=== PATIENT | female | born 1950 | race American Indian/Alaskan Native ===

== ENCOUNTER 2020-04-30 09:00 | Outpatient (CLI) | payer MEDICARE, OTHER ==
[2020-04-29 13:49] VITALS: BP 190/108
[2020-05-03] MEDS ORDERED: HYDROmorphone 1 MG/1 ML INJ IV PRN ×2 (07:24)
[2020-05-03] MEDS ORDERED: ONDANSETRON 4 MG/2 ML INJ IV PRN (07:24)
[2020-05-03] MEDS ORDERED: LACTATED RINGERS 1,000 ML IV SCH (07:30)
[2020-05-03] MEDS ORDERED: GLYCOPYRROLATE 0.4 MG/2 ML INJ ONE (07:33)
[2020-05-03] MEDS ORDERED: PHENYLEPHRINE/NS 1,000 MCG/10 ML SYRINGE (OR USE) IV ONE (07:33)
[2020-05-03] MEDS ORDERED: ONDANSETRON 4 MG/2 ML INJ ONE (07:33)
[2020-05-03] MEDS ORDERED: dexAMETHasone 20 MG/5 ML VIAL ONE (07:33)
[2020-05-03] MEDS ORDERED: LIDOCAINE MPF (2%) 20 MG/1 ML VIAL 5 ML ONE (07:33)
[2020-05-03] MEDS ORDERED: fentaNYL 100 MCG/2 ML INJ ONE (07:33)
[2020-05-03] MEDS ORDERED: propofoL 200 MG/20 ML VIAL IV ONE (07:34)
[2020-05-03] MEDS ORDERED: SUCCINYLCHOLINE CHLORIDE 200 MG/10 ML INJ MDV ONE (07:36)
== END 2020-04-30 10:00 | disposition home or self-care (01) ==
LOC: LAB 09:00 → EDSTATUS 05-03 08:00
PROVIDERS: ATTEND Urology
DX: U07.1 COVID-19 (principal)
CPT/HCPCS: J0330; J1100; J2370; J2405; J2704; J3010; U0003

== ENCOUNTER 2020-05-24 09:17 | Day surgery (SDC) | payer MEDICARE, OTHER ==
[~2020-05-24 09:17] MED LIST: GLYCOPYRROLATE 0.4 MG/2 ML INJ ONE; LIDOCAINE MPF (2%) 20 MG/1 ML VIAL 5 ML ONE; ONDANSETRON 4 MG/2 ML INJ ONE; PHENYLEPHRINE/NS 1,000 MCG/10 ML SYRINGE (OR USE) IV ONE; SUCCINYLCHOLINE CHLORIDE 200 MG/10 ML INJ MDV ONE; dexAMETHasone 20 MG/5 ML VIAL ONE; fentaNYL 100 MCG/2 ML INJ ONE; propofoL 200 MG/20 ML VIAL IV ONE
--- NOTE | 2020-05-24 09:19 | Anesthesia Consultation ---
Anesthesia Consult and Med Hx Date of service: 05/24/20 - Airway Anesthetic Teeth Evaluation: Good ROM Head & Neck: Adequate Mental/Hyoid Distance: Adequate Mallampati Class: Class II Intubation Access Assessment: Probably Good - Pulmonary Exam CTA: Yes - Cardiac Exam Cardiac Exam: RRR - Pre-Operative Health Status ASA Pre-Surgery Classification: ASA2 Proposed Anesthetic Plan: General - Pulmonary Hx Smoking: No Hx Respiratory Symptoms: No Hx Sleep Apnea: No ([facility]OLINA PRE SCREEN LOW RISK) - Cardiovascular System Hx Hypertension: Yes (took nifedipine this morning) Hx Heart Attack/AMI: No - Central Nervous System CVA: No Hx Back Pain: Yes - Gastrointestinal Hx Gastroesophageal Reflux Disease: Yes - Endocrine Hx Renal Disease: No Hx Liver Disease: No Hx Insulin Dependent Diabetes: Yes Hx Thyroid Disease: No - Other Systems Hx Obesity: No - Additional Comments Anesthesia Medical History Comments: No hx anesthetic complications. Found to be COVID+ last month on preop screening test, asymptomatic. Neg rapid COVID test 05/21/20 on chart. Last dose ASA 6 days ago.
[2020-05-24] MEDS ORDERED: fentaNYL 100 MCG/2 ML INJ IV PRN (09:20)
[2020-05-24] MEDS ORDERED: ONDANSETRON 4 MG/2 ML INJ IV PRN (09:20)
[2020-05-24] MEDS ORDERED: HYDROcodone/ACETAMINOPHEN 5-325 MG TAB PO PRN (09:20)
--- NOTE | 2020-05-24 09:20 | Anesthesia Day of Surgery ---
Anesthesia Day of Surgery - Day of Surgery Patient Examined: Yes Patient H&P Reviewed: Yes Patient is NPO: Yes
[2020-05-24] MEDS ORDERED: BACTERIOSTATIC SODIUM CHLORIDE 0.9% 30 ML VIAL INFILTRATI ONE (09:26)
[2020-05-24] MEDS ORDERED: LACTATED RINGERS 1,000 ML IV SCH (09:30)
[2020-05-24] MEDS ORDERED: MIDAZOLAM 2 MG/2 ML INJ IV NR (10:00)
[2020-05-24] MEDS ORDERED: METOPROLOL SUCCINATE XL 100 MG TAB PO SCH (10:07)
[2020-05-24] MEDS ORDERED: ceFAZolin/Water 2 GM/20 ML 2 GM/20 ML SYRINGE IV ONE (10:48)
[2020-05-24] MEDS ORDERED: GLYCOPYRROLATE 0.4 MG/2 ML INJ ONE (10:56)
[2020-05-24] MEDS ORDERED: fentaNYL 100 MCG/2 ML INJ ONE (10:56)
[2020-05-24] MEDS ORDERED: LIDOCAINE MPF (2%) 20 MG/1 ML VIAL 5 ML ONE (10:56)
[2020-05-24] MEDS ORDERED: PHENYLEPHRINE/NS 1,000 MCG/10 ML SYRINGE (OR USE) IV ONE (10:56)
[2020-05-24] MEDS ORDERED: dexAMETHasone 20 MG/5 ML VIAL ONE (10:56)
[2020-05-24] MEDS ORDERED: ONDANSETRON 4 MG/2 ML INJ ONE (10:56)
[2020-05-24] MEDS ORDERED: propofoL 200 MG/20 ML VIAL IV ONE (10:57)
[2020-05-24] MEDS ORDERED: ceFAZolin/Water 2 GM/20 ML 2 GM/20 ML SYRINGE IV NR (11:30)
--- NOTE | 2020-05-24 11:38 | Post Operative Note ---
Date of procedure: 05/24/20 Pre-op diagnosis: hematuria Post-op diagnosis: same Findings: see report Procedure: cysto rpgs bx Anesthesia: GETA Surgeon: TAN ALVARENGA Estimated blood loss: minimal Pathology: list (bladder) Specimen disposition: to lab Condition: stable Disposition: PACU
--- NOTE | 2020-05-24 11:39 | Discharge Summary ---
Short Stay Discharge Plan Activity: other (no straining ) Weight Bearing Status: Full Weight Bearing Diet: low fat, low cholesterol, low salt Special Instructions: other (inc fluids ) Additional Instructions: DO NOT TAKE BYSTOLIC AT HOME TODAY. MEDICATION GIVEN IN PREOP. Follow up with: ARTUR RODRIGUEZ DO [Primary Care Provider] - 7 Days TAN ALVARENGA MD [Staff Physician] - 3 Days
--- NOTE | 2020-05-24 12:33 | Fluoroscopy Report ---
FLUOROSCOPY RETROGRADE UROGRAPHY HISTORY: FINDINGS: Fluoroscopy was provided by radiology during retrograde urography by the urologist. There i s normal filling of both renal collecting systems. No filling defect or abnormal dilatation is identi fied. IMPRESSION: Unremarkable bilateral retrograde pyelograms Fluoroscopy time: 53 seconds Fluoroscopic images: 6 Signer Name: James Rivas Jr, MD Signed: 05/24/2020 12:29 PM Workstation Name: [id number]
--- NOTE | 2020-05-24 13:50 | Post Anesthesia Evaluation ---
- Post Anesthesia Evaluation Patient Participated: Yes Airway Patent: Yes Stable Respiratory Function: Yes Nausea/Vomiting: No Temp > 96.8F: Yes Pain Manageable: Yes Adequeate Hydration: Yes Anesthesia Complications: No
--- NOTE | 2020-05-24 14:22 | Operative Report ---
PREOPERATIVE DIAGNOSIS: Thickened anterior wall hematuria. POSTOPERATIVE DIAGNOSES: Thickened anterior wall hematuria. PROCEDURE: Cystoscopy, retrograde, bladder biopsies, fulguration. SURGEON: Dr. Samuels. ANESTHESIA: General. FINDINGS: This is a woman who tried to get scheduled for a little while, had to be canceled because of COVID. CT scan for hematuria showed a thickened bladder wall. She now presents for cystoscopy. DESCRIPTION OF PROCEDURE: The patient was brought to the operating room and placed on the operating table. Following induction of anesthesia, placed in lithotomy position, prepped and draped in usual sterile fashion. She has not had any hematuria since last year. Cystoscopy showed a little thickening and elevated epithelium, posterior wall towards the dome. Retrograde showed good filling, good drainage bilaterally under fluoroscopic guidance. Biopsies were done. Area was fulgurated. The patient tolerated the procedure well. No significant complications, brought to recovery in stable condition. Keller catheter draining clear. JOB# [id number] LEANA/BRUNO
[2020-05-24 15:08] VITALS: BP 142/90
== END 2020-05-24 09:18 | disposition home or self-care (01) ==
LOC: OR 09:17
PROVIDERS: ATTEND Urology
DX: N30.81 Other cystitis with hematuria (principal); H40.9 Unspecified glaucoma; E78.00 Pure hypercholesterolemia, unspecified; I10 Essential (primary) hypertension; K21.9 Gastro-esophageal reflux disease without esophagitis; M19.90 Unspecified osteoarthritis, unspecified site; E11.9 Type 2 diabetes mellitus without complications; Z98.890 Other specified postprocedural states; Z79.899 Other long term (current) drug therapy; Z88.8 Allergy status to other drugs, medicaments and biological substances; Z86.19 Personal history of other infectious and parasitic diseases; Z79.82 Long term (current) use of aspirin; Z79.4 Long term (current) use of insulin; Z90.710 Acquired absence of both cervix and uterus; Z87.440 Personal history of urinary (tract) infections
CPT/HCPCS: 52204; 74420; 82962; 88112; 88305; C1758; J0690; J1100; J2370; J2405; J2704; J3010; J7120; Q9967; U0003; J0330